=== PATIENT | female | born 2000 | race African-American/Black ===

== ENCOUNTER 2018-11-16 21:35 | Emergency (ER) | payer OTHER ==
[~2018-11-16] VITALS: Ht 154.9 cm; Wt 47.6 kg
[2018-11-16 21:52] VITALS: BP 114/51
[2018-11-16] MEDS ORDERED: HYDR-3164 PO (23:34)
[2018-11-16] MEDS ORDERED: NEOM28.32 TP (23:34)
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
[2018-11-16] MEDS ORDERED: HYDROcodone/APAP 7.5/325MG 1 TAB TABLET PO ONE (23:45)
[2018-11-16] MEDS ORDERED: NEOMY/BACITR/POLYMYXIN OINT PACKET. TP ONE (23:45)
== END 2018-11-17 00:06 | disposition home or self-care (01) ==
LOC: ER 21:35
DX: O9A.212 Injury, poisoning and certain other consequences of external causes complicating pregnancy, second trimester (principal); T21.22XA Burn of second degree of abdominal wall, initial encounter; Z3A.26 26 weeks gestation of pregnancy; X10.0XXA Contact with hot drinks, initial encounter; Y93.89 Activity, other specified; Y92.89 Other specified places as the place of occurrence of the external cause; Y99.8 Other external cause status; Z88.0 Allergy status to penicillin; Z88.1 Allergy status to other antibiotic agents; Z88.2 Allergy status to sulfonamides; Z88.8 Allergy status to other drugs, medicaments and biological substances
CPT/HCPCS: 99283